=== PATIENT | male | born 1955 | race Native Hawaiian/Other Pacific Islander ===

== ENCOUNTER 2018-06-23 08:08 | Emergency (ER) | payer MEDICAID ==
[~2018-06-23] VITALS: Ht 172.7 cm; Wt 37.5 kg
[~2018-06-23 08:08] MED LIST: AMLO-512 PO; ATOR20TA86 PO; CALC-1038 PO; CLOP75 PO; FEBU40T PO; FOLI1CAP2 PO; PRED20 PO; [UNRECOGNIZED DRUG - OTHER] SQ
[2018-06-23] MEDS ORDERED: POLY10DR22 OU (08:13)
[2018-06-23] MEDS ORDERED: FLUORESCEIN SODIUM 1 MG STRIP OS ONE (09:00)
[2018-06-23] MEDS ORDERED: PROPARACAINE HCL 0.5% 15 ML OPHTHALMIC SOLUTION OS ONE (09:00)
[2018-06-23 10:22] VITALS: BP 126/81
== END 2018-06-23 10:24 | disposition home or self-care (01) ==
LOC: EMS 08:09
DX: H00.14 Chalazion left upper eyelid (principal); E78.00 Pure hypercholesterolemia, unspecified; I10 Essential (primary) hypertension; N28.9 Disorder of kidney and ureter, unspecified; Z98.890 Other specified postprocedural states; Z79.01 Long term (current) use of anticoagulants; Z79.2 Long term (current) use of antibiotics; Z79.899 Other long term (current) drug therapy